=== PATIENT | male | born 1965 | race Caucasian/White ===

== ENCOUNTER 2024-10-21 17:35 | Emergency (ER) | payer OTHER ==
[2024-10-21 18:25] LABS: #Basophils 0.03 10x3/uL (0.0-0.2); %Basophils 0.3 % (0.0-1.0); %Eosinophils 0.3 % (0.0-10.0); %Lymphocytes 22.7 % (21.0-51.0); %Monocytes 9.6 % (0.0-10.0); %Neutrophils 66.8 % (42.0-75.0); Hematocrit 45.7 % (42.0-52.0); Hemoglobin 15.2 g/dL (14.0-18.0); Mean Corpuscular HGB CONC 33.3 g/dL (32.0-36.0); Mean Corpuscular Hemoglobin 29.2 pg (27.0-31.0); Mean Corpuscular Volume 87.9 fL (78.0-98.0); Platelet Count 247 10x3/uL (130-400); RBC Distribution Width 13.2 % (11.5-14.5)
[2024-10-21 18:41] LABS: ALT (SGPT) 28 U/L (8-55); AST (SGOT) 19 U/L (5-34); Albumin 4.4 g/dL (3.5-5.0); Alkaline Phosphatase 61 U/L (40-110); Anion Gap 16 mmol/L (10-20); BUN (Urea Nitrogen) 14 mg/dL (8.4-25.7); Bilirubin, Total 0.5 mg/dL (0.2-1.2); Calc. Creatinine Clearance 0 mL/min (70-130); Calcium 9.1 mg/dL (7.8-10.44); Carbon Dioxide 24 mmol/L (22-29); Chloride 103 mmol/L (98-107); Estimated GFR 78; Glucose 161 mg/dL (70-105); Potassium 3.8 mmol/L (3.5-5.1); Protein, Total 7.4 g/dL (6.0-8.3); Sodium 139 mmol/L (136-145)
== END 2024-10-21 19:18 | disposition home or self-care (01) ==
LOC: ERS 17:35
DX: Z76.0 Encounter for issue of repeat prescription (principal)
CPT/HCPCS: 36415; 80053; 85025; 99281